=== PATIENT | female | born 1970 | race Two or more races ===

== ENCOUNTER 2025-02-07 09:59 | Outpatient (CLI) | payer BC ==
[2025-02-07 10:39] LABS: Hematocrit 47.9 % (36.0-46.0); Hemoglobin 16.0 g/dL (12.2-16.2); Mean Corpuscular Hemoglobin 29.2 pg (28.0-32.0); Mean Corpuscular Volume 87.4 fL (80.0-100.0); Nucleated Red Blood Cells % 0.1 %
[2025-02-07 10:59] LABS: Alanine Aminotransferase 23 U/L (7-40); Albumin 4.7 g/dL (3.2-4.8); Anion Gap 10 (5-15); BUN/Creatinine Ratio 11.0 (10.0-20.0); Bilirubin, Total 0.8 mg/dL (0.2-1.0); Blood Urea Nitrogen 11 mg/dL (9-23); Calcium 10.1 mg/dL (8.7-10.4); Carbon Dioxide 28 mmol/L (20-31); Total Protein 8.1 g/dL (5.7-8.2)
[2025-02-07 11:05] LABS: Alkaline Phosphatase 127 U/L (46-116); Chloride 97 mmol/L (98-107); Sodium 135 mmol/L (136-145)
[2025-02-07 11:08] LABS: Glucose 529 mg/dL (74-106); Potassium 5.6 mmol/L (3.5-5.1)
[2025-02-07 11:21] LABS: HDL Cholesterol 54 mg/dL (40-59)
[2025-02-07 11:25] LABS: Cholesterol 315 mg/dL (< 200); Triglycerides 174 mg/dL (< 150)
[2025-02-08 12:39] LABS: Hepatitis A Total Antibody Positive (Negative); Hepatitis B Surface Antigen Negative (Negative); Hepatitis C Antibody Negative (Negative)
== END 2025-02-07 17:00 | disposition home or self-care (01) ==
LOC: LAB 09:59
PROVIDERS: ATTEND Licensed Practical Nurse
DX: I10 Essential (primary) hypertension (principal); E11.9 Type 2 diabetes mellitus without complications; E78.5 Hyperlipidemia, unspecified; E55.9 Vitamin D deficiency, unspecified; R53.0 Neoplastic (malignant) related fatigue; R74.01 Elevation of levels of liver transaminase levels; Z13.29 Encounter for screening for other suspected endocrine disorder
CPT/HCPCS: 36415; 80053; 80061; 82043; 82306; 83036; 84443; 85025; 86704; 86706; 86708; 86803; 87340